=== PATIENT | female | born 1945 | race Caucasian/White ===

== ENCOUNTER → 2022-09-13 | Outpatient (CLI) | payer MEDICARE, MEDICAID, SELFPAY ==
--- NOTE | 2022-09-13 08:50 | LIP_PTH ---
PATIENT: PUSHPA SHIRLEY LOC: [facility] U#:[id number] AGE/SX: 76/F ROOM: RE09/13/[address]: Dr. Reinaldo Block MD : 1945 BED: DIS: 09/13/2022 SPEC #: [id number] RECD: 09/13/22 14:22 STATUS: NANCY REToi #: [id number] ARTURO: 09/13/22 08:[address]: Reinaldo Block DEPT: SURGICAL PATHOLOGY RECD BY: Stormy Zuniga ENTERED: 09/14/22 08:50 SP TYPE: LIPOMA OTHR DR: Dr. Pushpa Ttoh MD Tissues: Soft tissues, NOS Procedures: Surgery Specimen Level III HEADER OPERATION: Excision left shoulder mass PRE-OP DIAGNOSIS: Left shoulder mass TISSUE SUBMITTED: Left shoulder tissue MICROSCOPIC DIAGNOSIS Soft tissue mass of left shoulder, excision: Mature adipose tissue consistent with lipoma. AM:jodee 09/15/2022 MICROSCOPIC DESCRIPTION Slides are reviewed. GROSS DESCRIPTION Received in fixative is one container labeled with the patient's name and designated left shoulder tissue. The specimen consists of an ovoid fragment of yellow fatty tissue measuring 3 x 2.2 x 1 cm. Sections reveal homogenous yellow cut surfaces. The specimen is bisected and totally submitted in two cassettes. / AM:jodee 09/14/2022 TC:1 CPT: 34035
== END | disposition home or self-care (01) ==
PROVIDERS: PCP Family Medicine; Visit Provider Surgery
DX: R22.32 Localized swelling, mass and lump, left upper limb (principal)
CPT/HCPCS: 88304